=== PATIENT | female | born 1965 | race Two or more races ===

== ENCOUNTER 2017-11-15 17:46 | Emergency (ER) | payer OTHER ==
[~2017-11-15] VITALS: Ht 165.1 cm; Wt 70.0 kg
[2017-11-15] MEDS ORDERED: CHLO25CA10 PO (17:53)
[2017-11-15] MEDS ORDERED: TETANUS, DIPHTHERIA, PERTUSSIS VAC/PF 0.5ML (>7YR OLD) IM ONE (19:00)
[2017-11-15 19:23] LABS: BASOPHILS % 0.6 % (0.0-2.0); EOSINOPHILS % 1.8 % (0.0-5.0); HEMATOCRIT. 44.4 % (36.0-48.0); HEMOGLOBIN. 15.4 g/dL (12.0-16.0); LYMPHOCYTES % 42.7 % (20.0-50.0); MEAN CORPUSCULAR HEMOGLOBIN 34.2 pg (28.0-32.0); MEAN CORPUSCULAR VOLUME 98.3 fL (81.0-99.0); MEAN PLATELET VOLUME 7.9 fl (7.4-10.4); MONOCYTES % 4.3 % (2.0-8.0); NEUTROPHILS % 50.6 % (40.0-76.0); PLATELET 274 x1000/uL (130-400); RED BLOOD CELL COUNT 4.52 mill/uL (4.2-5.4); RED CELL DISTRIBUTION WIDTH 13.2 % (11.6-14.6)
[2017-11-15 19:25] LABS: HCG SCREEN NEGATIVE
[2017-11-15 19:32] LABS: CHLORIDE 111 mEq/L (98-107); ETHANOL BLOOD 170 mg/dL
[2017-11-15 19:42] LABS: VALPROIC ACID < 3.0 ug/mL (50-100)
[2017-11-16 01:17] LABS: CLARITY URINE CLEAR (CLEAR); COLOR URINE YELLOW (YELLOW); KETONES URINE TRACE (NEGATIVE); NITRITE URINE NEGATIVE (NEGATIVE); OCCULT BLOOD URINE NEGATIVE (NEGATIVE); PROTEIN URINE NEGATIVE (NEGATIVE); SPECIFIC GRAVITY URINE 1.012 (1.005-1.030); UROBILINOGEN URINE 0.2 E.U./dL (0.2-1.0)
[2017-11-16 01:18] LABS: LEUKOCYTE ESTERASE URINE NEGATIVE (NEGATIVE)
[2017-11-16 01:27] LABS: *AMPHETAMINES SCREEN URINE NEGATIVE (NEGATIVE); *BARBITURATES SCREEN URINE NEGATIVE (NEGATIVE); *BENZODIAZEPINES SCREEN URINE PRESUMTIVE POSITIVE (NEGATIVE); *COCAINE SCREEN URINE NEGATIVE (NEGATIVE); METHADONE URINE SCREEN NEGATIVE (NEGATIVE); OPIATES URINE SCREEN NEGATIVE (NEGATIVE); PHENCYCLIDINE URINE SCREEN NEGATIVE (NEGATIVE)
[2017-11-16 01:28] LABS: CANNABINOID URINE SCREEN NEGATIVE (NEGATIVE)
[2017-11-16 11:47] VITALS: BP 137/73
== END 2017-11-16 12:25 ==
LOC: ER 17:46
DX: T42.4X2A Poisoning by benzodiazepines, intentional self-harm, initial encounter (principal); Y92.9 Unspecified place or not applicable; S60.812A Abrasion of left wrist, initial encounter; S50.811A Abrasion of right forearm, initial encounter; X58.XXXA Exposure to other specified factors, initial encounter; F31.9 Bipolar disorder, unspecified; F10.20 Alcohol dependence, uncomplicated; F17.200 Nicotine dependence, unspecified, uncomplicated; Y93.89 Activity, other specified; Y92.89 Other specified places as the place of occurrence of the external cause; Y99.8 Other external cause status; Z23 Encounter for immunization
CPT/HCPCS: 36415; 80053; 80165; 80305; 80307; 80329; 81003; 84703; 85025; 93005; 99285; G0482; Z7610

== ENCOUNTER 2018-04-09 17:01 | Emergency (ER) | payer OTHER ==
[~2018-04-09] VITALS: Ht 170.2 cm; Wt 67.0 kg
[~2018-04-09 17:01] MED LIST: CHLO25CA10 PO
[2018-04-09 17:03] VITALS: BP 126/76
== END 2018-04-09 19:17 | disposition left against medical advice (07) ==
LOC: ER 17:01
DX: Z53.21 Procedure and treatment not carried out due to patient leaving prior to being seen by health care provider (principal)

== ENCOUNTER 2020-07-01 01:04 | Inpatient (IN) | payer OTHER, MEDICAID ==
[~2020-07-01] VITALS: Ht 160 cm; Wt 71.7 kg
[2020-07-01] MEDS ORDERED: ONDANSETRON HCL 4MG/2ML INJ IV STA (01:14)
[2020-07-01] MEDS ORDERED: PANTOPRAZOLE SODIUM 40 MG/VIAL IV STA (01:14)
[2020-07-01] MEDS ORDERED: OCTREOTIDE 1,000 MCG in SODIUM CHLORIDE 0.9% 100 ML IV STA (01:14)
[2020-07-01] MEDS ORDERED: OCTREOTIDE ACETATE 50 MCG/ML 1ML IV STA (01:14)
[2020-07-01] MEDS ORDERED: CEFTRIAXONE 1 G PREMIX 50 ML IV ONE (01:15)
[2020-07-01] MEDS ORDERED: SODIUM CHLORIDE 0.9% 1,000 ML IV ONE (01:15)
[2020-07-01 01:51] LABS: BASOPHILS % 1.2 % (0.0-2.0); EOSINOPHILS % 0.1 % (0.0-5.0); LYMPHOCYTES % 43.6 % (20.0-50.0); MEAN CORPUSCULAR HEMOGLOBIN 30.6 pg (28.0-32.0); MEAN CORPUSCULAR VOLUME 92.5 fL (81.0-99.0); MEAN PLATELET VOLUME 9.3 fl (7.4-10.4); MONOCYTES % 10.3 % (2.0-8.0); NEUTROPHILS % 44.8 % (40.0-76.0); PLATELET 53 x1000/uL (130-400); RED BLOOD CELL COUNT 1.74 mill/uL (4.2-5.4); RED CELL DISTRIBUTION WIDTH 23.5 % (11.6-14.6)
[2020-07-01 01:55] LABS: CHLORIDE 104 mEq/L (98-107)
[2020-07-01 02:08] LABS: HEMATOCRIT. 16.1 % (36.0-48.0); HEMOGLOBIN. 5.3 g/dL (12.0-16.0)
[2020-07-01 02:20] LABS: INR 1.5; PROTHROMBIN TIME 15.1 sec (9.6-11.0)
[2020-07-01] MEDS ORDERED: DIPHENHYDRAMINE 50MG/ML VIAL IV PRN (09:45)
[2020-07-01] MEDS ORDERED: PANTOPRAZOLE SODIUM 40 MG/VIAL IV SCH (10:00)
[2020-07-01] MEDS ORDERED: MVI, ADULT NO.1 10 ML, FOLIC ACID 1 MG, THIAMINE HCL 100 MG in SODIUM CHLORIDE 0.9% 1,0... IV NR ×4 (10:00)
[2020-07-01] MEDS: SODIUM CHLORIDE 0.9% 1,000 ML IV SCH (10:23)
[2020-07-01] MEDS ORDERED: OCTREOTIDE 1,000 MCG in SODIUM CHLORIDE 0.9% 98 ML IV SCH (10:30)
[2020-07-01] MEDS ORDERED: PHYTONADIONE 10MG/ML AMP SUBCUT SCH (10:30)
[2020-07-01 10:59] LABS: TOTAL IRON BINDING CAPACITY 165 ug/dL (250-450)
[2020-07-01 11:23] LABS: VITAMIN B12 SERUM 515 pg/mL (211-911)
[2020-07-01] MEDS: PANTOPRAZOLE SODIUM 40 MG/VIAL IV SCH ×2 (11:24→21:32)
[2020-07-01 12:06] LABS: FERRITIN 42 ng/mL (10-291)
[2020-07-01 12:17] LABS: HEPATITIS B SURFACE ANTIGEN NEGATIVE
[2020-07-01 12:38] LABS: HEMATOCRIT 23.7 % (36.0-48.0)
[2020-07-01 12:44] LABS: HEPATITIS A AB IGM NEGATIVE (NEGATIVE)
[2020-07-01 19:28] LABS: HEMATOCRIT 21.2 % (36.0-48.0); HEMOGLOBIN 7.3 g/dL (12.0-16.0)
[2020-07-01] MEDS: LORAZEPAM 2MG/ML CPJ IV PRN (19:55)
[2020-07-01 23:54] VITALS: BP 122/65
[2020-07-02] VITALS (46 sets, daily range): BP systolic 89–157; BP diastolic 29–88
[2020-07-02 00:57] LABS: HEMATOCRIT 21.8 % (36.0-48.0); HEMOGLOBIN 7.5 g/dL (12.0-16.0)
[2020-07-02] MEDS: SODIUM CHLORIDE 0.9% 1,000 ML IV SCH ×3 (01:00→23:07)
[2020-07-02] MEDS ORDERED: MORPHINE SULFATE 2 MG/ML CPJ (NOT FOR IM USE) IV PRN (02:00)
[2020-07-02] MEDS: OCTREOTIDE 1,000 MCG in SODIUM CHLORIDE 0.9% 98 ML IV SCH ×2 (02:53→16:37)
[2020-07-02] MEDS ORDERED: VIT1TABL77 MT (03:08)
[2020-07-02] MEDS ORDERED: PROP10TA10 PO (03:08)
[2020-07-02] MEDS ORDERED: LACT10SO44 PO (03:08)
[2020-07-02] MEDS ORDERED: FURO20TA4 PO (03:08)
[2020-07-02] MEDS ORDERED: SPIR50TA5 MT (03:08)
[2020-07-02] MEDS ORDERED: QUET400T11 PO (03:08)
[2020-07-02] MEDS ORDERED: CIPR250S3 PO (03:08)
[2020-07-02] MEDS ORDERED: PANT40TA4 PO (03:08)
[2020-07-02 04:56] LABS: HEMATOCRIT 21.8 % (36.0-48.0); HEMOGLOBIN 7.5 g/dL (12.0-16.0)
[2020-07-02 05:03] LABS: INR 1.3; PROTHROMBIN TIME 13.9 sec (9.6-11.0)
[2020-07-02 05:58] LABS: CHLORIDE 114 mEq/L (98-107)
[2020-07-02] MEDS: PANTOPRAZOLE SODIUM 40 MG/VIAL IV SCH ×2 (08:04→16:36)
[2020-07-02 13:21] LABS: HEMOGLOBIN 8.1 g/dL (12.0-16.0)
[2020-07-02] MEDS ORDERED: CHLORDIAZEPOXIDE 25MG CAPSULE PO SCH ×2 (14:00→22:00)
[2020-07-02] MEDS: LACTULOSE 20G/30ML UDC PO SCH ×2 (14:26→23:06)
[2020-07-02] MEDS: ONDANSETRON HCL 4MG/2ML INJ IV PRN ×2 (16:38→23:08)
[2020-07-02 18:27] LABS: HEMATOCRIT 24.6 % (36.0-48.0); HEMOGLOBIN 8.3 g/dL (12.0-16.0)
[2020-07-02] MEDS ORDERED: RIFAXIMIN 550 MG TABLET PO SCH (21:00)
[2020-07-02] MEDS: LORAZEPAM 2MG/ML CPJ IV PRN (23:07)
[2020-07-03] VITALS: BP 116/52
[2020-07-03 00:30] VITALS: BP 119/54
== END 2020-07-03 01:50 | disposition left against medical advice (07) | DRG 871 ==
LOC: ER 01:48 → MICUSO 04:29 → EDBEDREQTM 04:45 → EDBEDREQ 04:45 → ENRESERV 22:25
PROVIDERS: ADMIT Internal Medicine; ATTEND Internal Medicine
PROC: 30233K1 Transfusion of Nonautologous Frozen Plasma into Peripheral Vein, Percutaneous Approach (ICD-10-PCS; principal; 2020-07-01)
PROC: 30233N1 Transfusion of Nonautologous Red Blood Cells into Peripheral Vein, Percutaneous Approach (ICD-10-PCS; 2020-07-01)
PROC: 30233R1 Transfusion of Nonautologous Platelets into Peripheral Vein, Percutaneous Approach (ICD-10-PCS; 2020-07-01)
DX: R57.8 Other shock (principal); U07.1 COVID-19; E43 Unspecified severe protein-calorie malnutrition; K92.2 Gastrointestinal hemorrhage, unspecified; D61.818 Other pancytopenia; D68.9 Coagulation defect, unspecified; I85.10 Secondary esophageal varices without bleeding; E88.09 Other disorders of plasma-protein metabolism, not elsewhere classified; F10.20 Alcohol dependence, uncomplicated; F17.210 Nicotine dependence, cigarettes, uncomplicated; F31.9 Bipolar disorder, unspecified; I10 Essential (primary) hypertension; J45.909 Unspecified asthma, uncomplicated; K70.31 Alcoholic cirrhosis of liver with ascites; K76.0 Fatty (change of) liver, not elsewhere classified; Z80.3 Family history of malignant neoplasm of breast; Z86.19 Personal history of other infectious and parasitic diseases
CPT/HCPCS: 36415; 71045; 76700; 80048; 80053; 80076; 82140; 82248; 82607; 82728; 82746; 83540; 83550; 83605; 85014; 85018; 85025; 86705; 86709; 86803; 86850; 86900; 86920; 86927; 87340; 87635; 93005; 99291; C9113; C9803; J0696; J1200; J2060; J2270; J2354; J2405; J3411; J3430; J3490; J7030; J7050; P9016; P9017; P9034